=== PATIENT | female | born 1985 | race Caucasian/White ===

== ENCOUNTER → 2018-09-29 | Emergency (ER) | payer BC ==
[~2018-09-29] VITALS: Ht 160 cm; Wt 86.2 kg
[~2018-09-29] MED LIST: KETOROLAC TROMETHAMINE 60 MG/2 ML VIAL IM ONE
[2018-09-29 00:26] VITALS: BP_SYST 99
--- NOTE | 2018-09-29 00:26 | NUR ---
Patient to ER bed 06 to gown for evaluation. Side rails up. Report given to YADIRA Arroyo.
--- NOTE | 2018-09-29 00:26 | NUR ---
Patient AOx4, via wheelchair, presents to ER for complaint of right lateral malleolus pain 7/10 s/p trip and fall. Patient states she was walking/dancing when she suddenly tripped and "ate it". No report of numbness or tingling. Capillary refill <2 secs. No other symtoms or complaints. Swelling noted to site.
--- NOTE | 2018-09-29 00:48 | NUR ---
ER MD Calvillo at bedside for medical evaluation.
--- NOTE | 2018-09-29 01:00 | NUR ---
Pt's Radiology Studies done, well tolerated
--- NOTE | 2018-09-29 02:00 | NUR ---
Pt tolerated R ankle and foot immobilization well. Circulation checked on R foot via cap refill less than 3 seconds
[2018-09-29 03:00] VITALS: BP_SYST 99
--- NOTE | 2018-09-29 03:00 | NUR ---
Patient given written and verbal discharge instructions and verbalizes understanding. ER MD discussed with patient the results and treatment provided. Patient in stable condition. ID arm band removed. Patient educated on pain management and to follow up with PMD. Pain Scale 0/10 Opportunity for questions provided and answered.
--- NOTE | 2018-10-02 01:00 | NUR ---
Paloma burrows in [facility] - 10/02/18 at 2147 by JEANINE Pt's Radiology Studies done, well tolerated
== END | disposition still patient (30) ==
LOC: SED 00:09
DX: S92.351A Displaced fracture of fifth metatarsal bone, right foot, initial encounter for closed fracture (principal); S82.841A Displaced bimalleolar fracture of right lower leg, initial encounter for closed fracture; W01.0XXA Fall on same level from slipping, tripping and stumbling without subsequent striking against object, initial encounter; Y93.41 Activity, dancing; Y92.89 Other specified places as the place of occurrence of the external cause; Y99.8 Other external cause status
CPT/HCPCS: 29515; 73610; 73630; 96372; 99283; J1885